=== PATIENT | male | born 1960 | race Caucasian/White ===

== ENCOUNTER → 2016-06-11 | Outpatient (CLI) | payer OTHER | LOC: FIMAGING 15:36 | PROVIDERS: ATTEND Orthopaedic Surgery | DX: Z01.818 Encounter for other preprocedural examination (principal); M25.852 Other specified joint disorders, left hip; Z96.641 Presence of right artificial hip joint ==

== ENCOUNTER 2016-06-25 08:15 | Inpatient (IN) | payer OTHER ==
[~2016-06-25 08:15] MED LIST: ACETAMINOPHEN 325 MG TAB PO ONE; CEFAZOLIN 2 GM/DEXTR 100 ML IV ONE; CHLORHEXIDINE GLUC HIBICLENS 118 ML BTL TP ONE; DEXAMETHASONE 4 MG/ML VIAL IVP ONE; FAMOTIDINE 20 MG TAB PO ONE; ROPI/epiNEPH/KETOROLAC JOINT COCKTAIL IU ONE; SKIN ADHESIVE (DERMABOND) 1 EACH TP ONE; TRANEXAMIC ACID 3,000 MG in NS 50 ML IRR ONE; TRANEXAMIC ACID 3,000 MG/50 ML BAG IRR ONE
[2016-06-25] MEDS ORDERED: FAMOTIDINE 20 MG TAB ONE (10:31)
[2016-06-25] MEDS ORDERED: ACETAMINOPHEN 325 MG TAB ONE (10:31)
[2016-06-25] MEDS ORDERED: CEFAZOLIN 2 GM/DEXTROSE/100 ML BAG IV ONE (10:32)
[2016-06-25] MEDS ORDERED: DEXAMETHASONE 4 MG/ML VIAL ONE (10:32)
[2016-06-25] MEDS ORDERED: LR 1,000 ML IV ONE (10:40)
[2016-06-25] MEDS ORDERED: fentaNYL 100 MCG/2 ML INJ ONE (10:47)
[2016-06-25] MEDS ORDERED: MIDAZOLAM 2 MG/2 ML VIAL ONE (11:16)
[2016-06-25] MEDS ORDERED: PROMETHAZINE HCL 25 MG SUPPR PR PRN (11:51)
[2016-06-25] MEDS ORDERED: METOCLOPRAMIDE 10 MG/2 ML VIAL IVP PRN (11:51)
[2016-06-25] MEDS ORDERED: MAGNESIUM HYDROXIDE 30 ML UDCUP PO PRN (11:51)
[2016-06-25] MEDS ORDERED: ONDANSETRON DISINTEGRATING 4 MG TAB PO PRN (11:51)
[2016-06-25] MEDS ORDERED: DIPHENOXYLATE/ATROPINE LOMOTIL 1 TAB PO PRN (11:51)
[2016-06-25] MEDS ORDERED: LACTULOSE 20 GM/30 ML UDCUP PO PRN (11:51)
[2016-06-25] MEDS ORDERED: TEMAZEPAM 15 MG CAP PO PRN (11:51)
[2016-06-25] MEDS ORDERED: POLYETHYLENE GLYCOL 3350 17 GM PKT PO PRN (11:51)
[2016-06-25] MEDS ORDERED: diphenhydrAMINE 25 MG CAP PO PRN (11:51)
[2016-06-25] MEDS ORDERED: BISACODYL 10 MG SUPP PR PRN (11:51)
[2016-06-25] MEDS ORDERED: CYCLOBENZAPRINE 10 MG TAB PO PRN (11:51)
[2016-06-25] MEDS ORDERED: ONDANSETRON 4 MG/2 ML VIAL IVP PRN (11:51)
[2016-06-25] MEDS ORDERED: oxyCODONE IR 5 MG TAB PO PRN (11:51)
[2016-06-25] MEDS ORDERED: PHARMACY PAIN CONSULT 1 EA MISC PRN (11:51)
[2016-06-25] MEDS ORDERED: LIDOCAINE 2% 5 ML SDV ONE (11:52)
[2016-06-25] MEDS ORDERED: LR 1,000 ML IV SCH (12:00)
[2016-06-25] MEDS ORDERED: PROPOFOL/EMULSION 500 MG/50 ML BOTTLE IV ONE (12:08)
--- NOTE | 2016-06-25 13:10 | POSTOPPROG ---
Post Op Note Date of Operation: 06/25/16 Surgeon: Yanet Abraham Auricular Acupuncturist: Marjorie Abraham PAc Anesthesiologist: Nate Anesthesia: Spinal Pre-op Diagnosis: L hip DJD Post-op Diagnosis: same Indication: pain Procedure: L JOSE ALEJANDRO with robotic assist Findings: DJD hip Inf/Abcess present in the surg proc area at time of surgery?: No EBL: 100-500
[2016-06-25] MEDS ORDERED: WARFARIN SODIUM 5 MG TAB PO SCH (16:00)
[2016-06-25] MEDS: ACETAMINOPHEN 325 MG TAB PO SCH ×2 (16:50→18:05)
[2016-06-25] MEDS: FAMOTIDINE 20 MG TAB PO SCH (19:58)
[2016-06-25] MEDS: SENNOSIDES/DOCUSATE SODIUM TAB PO SCH (19:58)
[2016-06-25] MEDS: ceFAZolin 2 GM/DEXTROSE 100 ML IV SCH (19:58)
[2016-06-25] MEDS ORDERED: TAMSULOSIN HCL 0.4 MG CAP PO SCH (21:00)
[2016-06-26] MEDS: ACETAMINOPHEN 325 MG TAB PO SCH ×3 (00:24→13:18)
[2016-06-26] MEDS: ceFAZolin 2 GM/DEXTROSE 100 ML IV SCH (04:47)
[2016-06-26 05:17] LABS: HEMATOCRIT 36.2 % (40.0-51.0); HEMOGLOBIN 12.1 g/dL (13.7-17.5)
[2016-06-26 05:25] LABS: INR 1.06 (0.83-1.16); PROTIME(PATIENT) 13.7 SEC (12.0-15.0)
[2016-06-26 08:01] VITALS: RESP 16
[2016-06-26] MEDS: FAMOTIDINE 20 MG TAB PO SCH (08:36)
[2016-06-26] MEDS: SENNOSIDES/DOCUSATE SODIUM TAB PO SCH (08:37)
[2016-06-26] MEDS ORDERED: ENOXAPARIN 40 MG/0.4 ML SYR SC SCH (09:00)
[2016-06-26 11:50] VITALS: BP 116/66; PULSE 84; TEMP 98.5; O2SAT 94
--- NOTE | 2016-06-26 17:50 | GDS ---
[f rep st] DISCHARGE SUMMARY ADMISSION DIAGNOSIS: Left hip osteoarthritis. DISCHARGE DIAGNOSIS: Left hip osteoarthritis. PROCEDURE: Left total hip arthroplasty. VTE PROPHYLAXIS: Coumadin and Lovenox recommended. BRIEF DESCRIPTION OF HOSPITAL STAY: Patient was admitted for an elective joint arthroplasty. The p atient tolerated the procedure well and has passed physical therapy. The patient was given appropri ate antibiotic prophylaxis and venous thromboembolism prophylaxis. The patient's pain was well cont rolled on oral pain medication, patient was holding down food, and had urinated. Decision was made to discharge the patient. The patient was given post-operative prescriptions pre-operatively. PLAN: To follow up with Dr. Abraham at [facility] in 2 to 3 weeks. /[id number]/MODL
--- NOTE | 2016-06-26 18:16 | GOP ---
[f rep st] OPERATIVE REPORT DATE OF OPERATION: 06/25/2016 SURGEON: Gustabo Abraham MD AUTOM[employer]LE BODY WORKER: LUIS MANUEL Mccoy. ANESTHESIA: Spinal. PREOPERATIVE DIAGNOSIS: Left hip osteoarthritis. POSTOPERATIVE DIAGNOSIS: Left hip osteoarthritis. PROCEDURE PERFORMED: Left total hip arthroplasty with computer navigation and robotic assist. FINDINGS: ESTIMATED BLOOD LOSS: 200 cc. INDICATIONS: The patient has progressively worsening arthritis of the hip which has failed medical management. The patient understands the treatment option including continued non-operative care and has selected surgical intervention. The patient has decided to undergo total hip arthroplasty via the direct anterior approach understanding the risks of the procedure including, but not limited to, neurovascular injury, infection, persistent pain, component wear and loosening, deep venous thrombo sis, pulmonary embolism, limb length inequality (including dislocation), and intraoperative fracture s. DESCRIPTION OF PROCEDURE: After proper identification of the patient including verification and mar mariangel the surgical site, the patient was brought to the operating room and placed in the supine posit ion. All bony prominences were well padded. Anesthesia was induced without complication and intrav enous prophylactic antibiotics were administered prior to skin incision. After prepping and draping in the usual sterile fashion, attention was drawn to the contralateral pe lvis for attachment of the computer navigation tracker. Three percutaneous incisions were made over the iliac crest and the pelvic tracker was affixed using threaded 3.5 mm pins yielding excellent fi xation. Using computer navigation the patient's leg length and topographical pelvic anatomy was reg istered without complication. Attention was then drawn to surgical exposure of the hip. An incision was made with a #10 [place] er blade starting 3 cm lateral and 3 cm distal to the anterior superior iliac spine measuring 8 cm t o 10 cm and coursing distally toward the greater trochanter. The skin and subcutaneous tissues were divided sharply down the fascia kd. The fascia kd was incised in line with the skin incision e xposing the underlying tensor fascia kd muscle. This muscle was bluntly elevated from the fascia and the first extracapsular Cobra retractor was placed laterally at the junction of the superior fem oral neck and greater trochanter. The lateral femoral circumflex vessels were identified, cauterize d and divided with the Aquamantys bipolar cautery. The deep investing fascia of the TFL was divided to allow proper mobilization of the muscle preventing damage during retraction. The reflected head of the rectus femoris muscle was elevated off the anterior hip capsule and a medial Cobra retractor was placed just proximal to the lesser trochanter. The anterior capsulotomy was made sharply from the superolateral acetabulum to the saddle junction o f the superior femoral neck and greater trochanter, then coursing inferomedial towards the lesser tr ochanter. The retractors were then placed in the intracapsular position for femoral neck osteotomy. Corresponding to preoperative templating the osteotomy was made with the oscillating saw protectin g the greater trochanter and soft tissues. The femoral head was removed from the acetabulum with a corkscrew and confirmed to be severely arthritic with exposed bone, deformity and osteophytes. Essence lar finding were confirmed in the acetabulum. The Arch table extension was then placed in 40 degrees external rotation. Attention was then drawn to the acetabular preparation. After placement of the anterior and posterior Cobra retractors outsi de the labrum and intrascapular the circumferential labrum was removed sharply. The foveal contents were then removed and hemostasis obtained with cautery. The anatomy of the acetabulum was then reg istered using computer navigation. The first reamer selected was sized using the removed femoral head. Reaming began with robotic assi st at 40 degrees of abduction and 20 degrees of anteversion using computer navigation. Reaming ceas ed 0 mm less than the definitive acetabular component. The final acetabular component was inserted using the computer to achieve proper orientation yielding excellent purchase and stability in the ac etabulum. The final acetabular liner was then placed and its seating confirmed. Attention was then turned to the femur. The Arch table extension was placed in extension and adduct ion delivering the osteotomized femoral neck into the wound. A 2-pronged femoral elevator was place d at the calcar and another at the tip of the greater trochanter. The posterolateral capsule was re leased with cautery allowing mobilization of the femur lateral and anterior for preparation. The ex ternal rotators were visualized and preserved. A curette and rongeur were used to open the starting point for broaching. Serial broaching started with the #0 broach and ended with the broach that exh ibited excellent fit in the proximal femur. A change in pitch during mallet strikes was accompanied by the inability to advance the broach any further. The trial reduction was performed and fluorosc opic navigation was utilized to check limb length. Adjustments were made to equalize limb length ac cordingly. After the final trials were accepted they were removed and the wound was copiously lavaged. The fem oral component was seated to the same depth as the final broach and the femoral head was impacted on to the clean trunnion. The hip was then reduced for the final time and once more fluoroscopic navig ation used to check that limb length equality was achieved. The wound was irrigated and closed in layers, the fascia kd with 2-0 Quill, the subcutaneous tissu e with a 2-0 Quill, and the skin with Dermabond, including the small incisions for computer navigati on. Sterile dressings were applied. Final sharps and sponge counts were accurate. The patient was then transferred to a hospital bed and brought to the recovery room in stable condition. IMPLANTS: Accolade II, size 2 at 127, acetabular component a 56 mm Tritanium. Liner is a Trident X 3, 36 mm. The head is a Biolox Delta at 36 mm +0. /[id number]/MODL
--- NOTE | 2016-06-26 22:04 | SOAPPROG ---
SOAP Progress Note Assessment/Plan: Assessment: Don is doing well POD 1 s/p L JOSE ALEJANDRO pain well controlled on oral pain meds anemia: level expected initially postop. asymptomatic VTE ppx: recommend coumadin daily.cont SOLANGE abad d/c planning: d/c to home pending release from PT Plan: 06/26/16 22:03 Subjective: Don is doing well today, denies SOB, chest pain and N/V. had many questions regarding activity precautions Objective: Vital Signs Temp Pulse Resp BP Pulse Ox 36.9 C 84 16 116/66 94 06/26/16 11:49 06/26/16 11:49 06/26/16 11:49 06/26/16 11:49 06/26/16 11:49 Laboratory Results 06/26/16 04:55 06/25/16 06/26/16 06/27/16 05:59 05:59 05:59 Intake Total 4745 200 Output Total 1410 250 Balance 3335 -50 PT 13.7 SEC (12.0-15.0) 06/26/16 04:55 INR 1.06 (0.83-1.16) 06/26/16 04:55 LLE: incision dressing is clean and dry, NVI, +pf/df ICD10 Worksheet Patient Problems: Problems Problem Status Onset Primary localized osteoarthritis of left hip Acute
== END 2016-06-26 13:43 | disposition home or self-care (01) | DRG 470 ==
LOC: F3N 10:02
PROVIDERS: ADMIT Orthopaedic Surgery; ATTEND Orthopaedic Surgery
PROC: 0SRB04Z Replacement of Left Hip Joint with Ceramic on Polyethylene Synthetic Substitute, Open Approach (ICD-10-PCS; principal; 2016-06-25 12:15)
DX: M16.12 Unilateral primary osteoarthritis, left hip (principal); N40.0 Benign prostatic hyperplasia without lower urinary tract symptoms
CPT/HCPCS: 97161-GP; 97165-GO; J0171; J0690; J1100; J1650; J1885; J2250; J2704; J2795; J3010